=== PATIENT | female | born 1985 | race Caucasian/White ===

== ENCOUNTER 2017-12-27 13:00 | Emergency (ER) | payer OTHER ==
[~2017-12-27] VITALS: Ht 162.6 cm; Wt 117.4 kg
[~2017-12-27 13:00] MED LIST: NOHOMEMEDS
[2017-12-27 13:38] LABS: HEMATOCRIT 42.5 % (36.0-46.0); HEMOGLOBIN 15.1 G/DL (11.9-15.5); MCH 31.5 PG (29.0-34.0); MCHC 35.5 G/DL (30.0-36.0); MCV 88.5 FL (83-99); PLATELET COUNT 269 K/uL (156-360); RBC DIS.WIDTH-SD 38.7 % (39-53); WHITE BLOOD COUNT 9.8 K/uL (4.1-10.2)
[2017-12-27 13:47] LABS: ALBUMIN 4.2 g/dL (3.2-4.8); CHLORIDE 108 mEq/L (99-109); POTASSIUM 4.1 mEq/L (3.7-5.4); SODIUM 138 mEq/L (136-147)
[2017-12-27 13:49] LABS: GLUCOSE 82 mg/dL (70-99)
[2017-12-27 13:50] LABS: TOTAL PROTEIN 7.4 g/dL (6.4-8.3)
[2017-12-27 13:51] LABS: TOTAL BILIRUBIN 0.6 mg/dL (0.0-1.0)
[2017-12-27 13:53] LABS: ALKALINE PHOSPHATASE 99 IU/L (3-129); CREATININE 0.7 mg/dL (0.6-1.3); GFR ESTIMATE (CALCULATED) > 59 mL/min/
[2017-12-27 13:54] LABS: UREA NITROGEN (BUN) 10 mg/dL (9-23)
[2017-12-27 13:55] LABS: AST (GOT) 41 IU/L (2-34)
[2017-12-27 13:56] LABS: ALT (GPT) 54 IU/L (3-49); LIPASE 18 U/L (1.0-51.0)
[2017-12-27 14:16] LABS: QUANTITATIVE HCG < 4.0 MIU/ML
[2017-12-27 15:53] LABS: APPEARANCE SL.HAZY ((CLEAR)); BILIRUBIN NEGATIVE; BLOOD NEGATIVE; COLOR YELLOW ((YELLOW)); GLUCOSE (STRIP) NEGATIVE; KETONES 80; LEUKOCYTES NEGATIVE; NITRITE NEGATIVE; PROTEIN (STRIP) NEGATIVE; UROBILINOGEN 0.2 MG/DL (0.2-1.0)
[2017-12-27 16:31] LABS: BACTERIA 2+ /HPF; EPITHELIAL CELLS 1+ /HPF; MUCUS 3+ /LPF; RED BLOOD CELLS RARE /HPF (0-5); UCUL ADDED? YES; WHITE BLOOD CELLS 0-5 /HPF (0-5)
[2017-12-27] MEDS ORDERED: ZOFRAN4 MG PO (16:35)
[2017-12-27 16:45] VITALS: BP 135/67
== END 2017-12-27 16:47 | disposition home or self-care (01) ==
LOC: EME 13:00
DX: R11.2 Nausea with vomiting, unspecified (principal); J45.909 Unspecified asthma, uncomplicated; F32.9 Major depressive disorder, single episode, unspecified; F31.9 Bipolar disorder, unspecified; F17.200 Nicotine dependence, unspecified, uncomplicated; Z87.442 Personal history of urinary calculi; Z90.49 Acquired absence of other specified parts of digestive tract; Z88.0 Allergy status to penicillin
CPT/HCPCS: 80053; 81003; 83690; 84702; 85027; 87086; 99281; 99284